=== PATIENT | female | born 1945 | race Caucasian/White ===

== ENCOUNTER 2017-07-02 15:14 | Inpatient (IN) | payer MEDICARE, MEDICAID ==
[~2017-07-02] VITALS: Ht 152.4 cm; Wt 53.2 kg
[2017-07-02] MEDS ORDERED: SODIUM CHLORIDE FLUSH 10ML SYR IVF ONE ×2 (15:30→17:00)
[2017-07-02] MEDS ORDERED: SODIUM CHLORIDE 0.9% 1,000ML IVBOLUS ONE ×2 (15:30→17:00)
[2017-07-02] MEDS ORDERED: ALBUTEROL/IPRATROPIUM 2.5MG/0.5MG, 3 ML NPPB ONE (15:30)
[2017-07-02 16:10] LABS: BLOOD UREA NITROGEN 8 mg/dL (7-18)
[2017-07-02 16:11] LABS: HEMATOCRIT 35.4 % (34.6-47.8); HEMOGLOBIN 11.9 g/dL (11.7-16.4); WHITE BLOOD COUNT 13.6 x10^3/uL (3.4-10)
[2017-07-02 16:16] LABS: IS PT STATUS REG ER OR PRE ER? YES
[2017-07-02] MEDS ORDERED: SODIUM CHLORIDE 0.9% 1,000 ML IV ONE (16:31)
[2017-07-02] MEDS ORDERED: ALBUTEROL/IPRATROPIUM 2.5MG/0.5MG, 3 ML ONE (16:59)
[2017-07-02] MEDS ORDERED: CEFTRIAXONE PMX 1GM/50ML 50 ML IVPB ONE (17:00)
[2017-07-02] MEDS ORDERED: AZITHROMYCIN 500 MG in SODIUM CHLORIDE 0.9% 250 ML IV ONE (17:00)
[2017-07-02] MEDS ORDERED: POLYETHYLENE GLYCOL 17 GM PACKET PO PRN (18:30)
[2017-07-02] MEDS ORDERED: ACETAMINOPHEN 325 MG TABLET PO PRN (18:30)
[2017-07-02] MEDS ORDERED: GUAIFENESIN/DM 200-20MG, 10ML UDC PO PRN (18:30)
[2017-07-02] MEDS ORDERED: ONDANSETRON 2MG/ML, 2ML IVPush PRN (18:30)
[2017-07-02] MEDS ORDERED: BISACODYL 10 MG SUPP PR PRN (18:30)
[2017-07-02] MEDS: AZITHROMYCIN 500 MG in SODIUM CHLORIDE 0.9% 250 ML IV SCH (19:18)
[2017-07-02] MEDS: CEFTRIAXONE PMX 1GM/50ML 50 ML IV SCH ×2 (19:19→21:58)
[2017-07-02] MEDS: SODIUM CHLORIDE 0.9% 1,000 ML IV SCH (21:54)
[2017-07-02] MEDS: HEPARIN 5,000 UNITS/ML, 1ML SQ SCH (22:01)
[2017-07-02] MEDS ORDERED: ALBUTEROL SULFATE 2.5 MG/3 ML NPPB PRN (22:30)
[2017-07-03 01:22] VITALS: BP 98/64
[2017-07-03 05:32] VITALS: BP 108/66
[2017-07-03 06:01] LABS: HEMATOCRIT 29.4 % (34.6-47.8); HEMOGLOBIN 10.1 g/dL (11.7-16.4); WHITE BLOOD COUNT 9.1 x10^3/uL (3.4-10)
[2017-07-03 06:21] LABS: ASPARTATE AMINO TRANSFERASE 30 U/L (15-37); BLOOD UREA NITROGEN 4 mg/dL (7-18)
[2017-07-03 07:00] VITALS: BP 96/57
[2017-07-03] MEDS: HEPARIN 5,000 UNITS/ML, 1ML SQ SCH ×3 (07:00→21:49)
[2017-07-03] MEDS: SENNA/DOCUSATE TABLET PO SCH (09:00)
[2017-07-03] MEDS: SODIUM CHLORIDE 0.9% 1,000 ML IV SCH ×2 (09:25→18:17)
[2017-07-03 12:30] VITALS: BP 103/60
[2017-07-03] MEDS: AZITHROMYCIN 500 MG in SODIUM CHLORIDE 0.9% 250 ML IV SCH (18:17)
[2017-07-03 19:15] VITALS: BP 112/68
[2017-07-03] MEDS: CEFTRIAXONE PMX 1GM/50ML 50 ML IV SCH (21:48)
[2017-07-04 00:34] VITALS: BP 98/61
[2017-07-04 05:35] LABS: HEMATOCRIT 29.7 % (34.6-47.8); HEMOGLOBIN 9.9 g/dL (11.7-16.4); WHITE BLOOD COUNT 10.1 x10^3/uL (3.4-10)
[2017-07-04 05:44] LABS: BLOOD UREA NITROGEN 4 mg/dL (7-18)
[2017-07-04] MEDS: HEPARIN 5,000 UNITS/ML, 1ML SQ SCH ×3 (07:00→19:49)
[2017-07-04 08:11] VITALS: BP 101/58
[2017-07-04] MEDS: SENNA/DOCUSATE TABLET PO SCH (09:00)
[2017-07-04 14:30] VITALS: BP 113/69
[2017-07-04] MEDS: SODIUM CHLORIDE 0.9% 1,000 ML IV SCH (15:13)
[2017-07-04] MEDS: AZITHROMYCIN 500 MG in SODIUM CHLORIDE 0.9% 250 ML IV SCH (17:34)
[2017-07-04 20:03] VITALS: BP 106/65
[2017-07-04] MEDS: CEFTRIAXONE PMX 1GM/50ML 50 ML IV SCH (21:42)
[2017-07-05 01:01] VITALS: BP 115/67
[2017-07-05 05:32] LABS: HEMATOCRIT 27.9 % (34.6-47.8); HEMOGLOBIN 9.5 g/dL (11.7-16.4); WHITE BLOOD COUNT 8.5 x10^3/uL (3.4-10)
[2017-07-05 05:43] LABS: BLOOD UREA NITROGEN 5 mg/dL (7-18)
[2017-07-05] MEDS: HEPARIN 5,000 UNITS/ML, 1ML SQ SCH ×2 (07:00→15:00)
[2017-07-05] MEDS: SENNA/DOCUSATE TABLET PO SCH (07:53)
[2017-07-05 08:00] VITALS: BP 113/68
[2017-07-05] MEDS: SODIUM CHLORIDE 0.9% 1,000 ML IV SCH (10:00)
[2017-07-05] MEDS ORDERED: DOXY100T PO (13:10)
[2017-07-05] MEDS ORDERED: ACET325T14 PO (13:10)
[2017-07-05 14:00] VITALS: BP 110/66
== END 2017-07-05 16:03 | disposition home or self-care (01) | DRG 871 ==
LOC: ED 17:29 → EDIP 18:16 → 3NE 19:47 → DCLOUNGE 07-05 16:03
PROVIDERS: ADMIT Hospitalist; ATTEND Hospitalist
DX: A41.9 Sepsis, unspecified organism (principal); J15.9 Unspecified bacterial pneumonia; E44.0 Moderate protein-calorie malnutrition; J90 Pleural effusion, not elsewhere classified; I95.9 Hypotension, unspecified; D64.9 Anemia, unspecified; E87.1 Hypo-osmolality and hyponatremia; J44.0 Chronic obstructive pulmonary disease with (acute) lower respiratory infection; K21.9 Gastro-esophageal reflux disease without esophagitis; Z68.26 Body mass index [BMI] 26.0-26.9, adult
CPT/HCPCS: 36415; 71020; 80048; 80053; 81003; 82040; 83605; 83880; 84145; 84484; 85025; 87040; 87070; 87077; 87186; 87205; 93005; 94640; 96365; J0456; J0696; J7030; J7050

== ENCOUNTER 2017-07-16 17:08 | Emergency (ER) | payer MEDICARE, MEDICAID ==
[~2017-07-16] VITALS: Ht 152.4 cm; Wt 44.0 kg
[~2017-07-16 17:08] MED LIST: ACET325T14 PO; DOXY100T PO
[2017-07-16] MEDS ORDERED: FAMOTIDINE 20 MG/2 ML ONE (18:18)
[2017-07-16] MEDS ORDERED: DIPHENHYDRAMINE 50 MG/ML, 1ML ONE (18:18)
[2017-07-16] MEDS ORDERED: methylPREDNISolone SOD SUCC 125 MG/2 ML ONE (18:18)
[2017-07-16] MEDS ORDERED: DIPHENHYDRAMINE 50 MG/ML, 1ML IVPush ONE (18:30)
[2017-07-16] MEDS ORDERED: methylPREDNISolone SOD SUCC 125 MG/2 ML IVPush ONE (18:30)
[2017-07-16] MEDS ORDERED: FAMOTIDINE 20 MG/2 ML IVPush ONE (18:30)
[2017-07-16 20:37] VITALS: BP 118/78
== END 2017-07-16 21:27 ==
LOC: ED 18:02
DX: T48.4X5A Adverse effect of expectorants, initial encounter (principal); Y92.89 Other specified places as the place of occurrence of the external cause; K21.9 Gastro-esophageal reflux disease without esophagitis
CPT/HCPCS: 96374; 96375; 99284; J1200; J2930; S0028

== ENCOUNTER → 2017-08-02 | Emergency (ER) | payer MEDICARE, MEDICAID ==
[~2017-08-02] VITALS: Ht 152.4 cm; Wt 48.4 kg
[~2017-08-02] MED LIST changes: +AZITHROMYCIN 500 MG in SODIUM CHLORIDE 0.9% 250 ML IVPB ONE; +BACITRACIN ZINC OINT 500U/GM, 0.9 GM ONE; +CEFTRIAXONE PMX 1GM/50ML 50 ML IVPB ONE; +CEFTRIAXONE PMX 1GM/50ML 50 ML ONE; +DIPHENHYDRAMINE 25 MG CAPSULE ONE; +DIPHENHYDRAMINE 25 MG CAPSULE PO ONE; +FAMOTIDINE 20 MG/2 ML IVPush ONE; +FAMOTIDINE 20 MG/2 ML ONE; +OMNIPAQUE 350 MG/ML, 100ML BOTTLE ONE; +SODIUM CHLORIDE 0.9% 1,000ML IVBOLUS ONE; +SODIUM CHLORIDE FLUSH 10ML SYR IVF ONE
[2017-08-02 03:32] LABS: BASOPHILS # (AUTO) 0.02 x10^3/uL (0-0.1); BASOPHILS % (AUTO) 0 % (0-1); EOSINOPHILS # (AUTO) 0.21 x10^3/uL (0-0.4); EOSINOPHILS % (AUTO) 1 % (1-7); LYMPHOCYTES % (AUTO) 19 % (22-44); MD NO; MEAN CORPUSCULAR HEMOGLOBIN 29.2 pg (27.0-34.8); MEAN CORPUSCULAR HGB CONC 32.9 g/dL (32.4-35.8); MEAN PLATELET VOLUME 7.2 fL (7.4-10.4); MONOCYTES # (AUTO) 1.06 x10^3/uL (0.2-0.8); MONOCYTES % (AUTO) 6 % (2-9); NEUTROPHILS # (AUTO) 12.47 x10^3/uL (1.8-6.8); NEUTROPHILS % (AUTO) 74 % (42-75); PLATELET COUNT 221 x10^3/uL (130-400); RED BLOOD COUNT 4.44 x10^6/uL (3.82-5.3); RED CELL DISTRIBUTION WIDTH 18.3 % (9.6-15.2)
[2017-08-02 03:43] LABS: ALANINE AMINOTRANSFERASE 28 U/L (12-78); ALBUMIN 3.2 g/dL (3.4-5.0); ANION GAP 5 mmol/L (5-15); CALCIUM 8.9 mg/dL (8.5-10.1); CHLORIDE 101 mmol/L (98-107)
[2017-08-02 03:47] LABS: ALKALINE PHOSPHATASE 118 U/L (45-117); BILIRUBIN,TOTAL 0.7 mg/dL (0.2-1.0); CREATININE 0.58 mg/dL (0.55-1.02); TOTAL PROTEIN 6.9 g/dL (6.4-8.2); TROPONIN I < 0.015 ng/mL (0.000-0.045)
[2017-08-02 05:58] VITALS: BP 112/74
== END ==
LOC: ED 02:51
DX: S22.41XA Multiple fractures of ribs, right side, initial encounter for closed fracture (principal); X58.XXXA Exposure to other specified factors, initial encounter; Y93.89 Activity, other specified; Y92.89 Other specified places as the place of occurrence of the external cause; Y99.8 Other external cause status
CPT/HCPCS: 36415; 71020; 71260; 74177; 80053; 84484; 85025; 87040; 93005; 96365; 96367; 96375; 99291; J0456; J0696; J7030; J7050; J7512; Q0163; Q9967; S0028

== ENCOUNTER 2017-08-08 00:50 | Emergency (ER) | payer MEDICARE, MEDICAID ==
[~2017-08-08] VITALS: Ht 152.4 cm; Wt 49.6 kg
[~2017-08-08 00:50] MED LIST changes: -AZITHROMYCIN 500 MG in SODIUM CHLORIDE 0.9% 250 ML IVPB ONE; -BACITRACIN ZINC OINT 500U/GM, 0.9 GM ONE; -CEFTRIAXONE PMX 1GM/50ML 50 ML IVPB ONE; -CEFTRIAXONE PMX 1GM/50ML 50 ML ONE; -DIPHENHYDRAMINE 25 MG CAPSULE ONE; -DIPHENHYDRAMINE 25 MG CAPSULE PO ONE; -FAMOTIDINE 20 MG/2 ML IVPush ONE; -FAMOTIDINE 20 MG/2 ML ONE; -OMNIPAQUE 350 MG/ML, 100ML BOTTLE ONE; -SODIUM CHLORIDE 0.9% 1,000ML IVBOLUS ONE; -SODIUM CHLORIDE FLUSH 10ML SYR IVF ONE
[2017-08-08 00:52] VITALS: BP 126/75
[2017-08-08] MEDS ORDERED: FAMOTIDINE 20 MG TABLET ONE (01:20)
[2017-08-08] MEDS ORDERED: DIPHENHYDRAMINE 25 MG CAPSULE ONE (01:20)
[2017-08-08] MEDS ORDERED: FAMOTIDINE 20 MG TABLET PO ONE (02:30)
[2017-08-08] MEDS ORDERED: DIPHENHYDRAMINE 25 MG CAPSULE PO ONE (02:30)
== END 2017-08-08 02:43 | disposition home or self-care (01) ==
LOC: ED 02:13
DX: T78.3XXA Angioneurotic edema, initial encounter (principal); K21.9 Gastro-esophageal reflux disease without esophagitis
CPT/HCPCS: 99283; Q0163